=== PATIENT | female | born 1975 | race Caucasian/White ===

== ENCOUNTER 2019-10-12 10:08 | Day surgery (SDC) | payer OTHER ==
[~2019-10-12 10:08] MED LIST: HYDROCHLO PO; SYNTHROID200 MCG PO; ZESTRIL40 M1 PO
== END 2019-10-12 18:47 | disposition home or self-care (01) ==
LOC: CIR.AMB 10:08
DX: N39.3 Stress incontinence (female) (male) (principal)
CPT/HCPCS: 57288; C1771